=== PATIENT | male | born 1935 | race Caucasian/White ===

== ENCOUNTER → 2016-07-18 | Outpatient (CLI) | payer MEDICARE | LOC: PCVCCLINIC 11:00 | PROVIDERS: ATTEND Internal Medicine Cardiovascular Disease | DX: I25.10 Atherosclerotic heart disease of native coronary artery without angina pectoris (principal); E78.00 Pure hypercholesterolemia, unspecified; I10 Essential (primary) hypertension; I48.91 Unspecified atrial fibrillation | CPT/HCPCS: 80061; 93005; G0463 ==

== ENCOUNTER → 2016-07-18 | Outpatient (CLI) | payer MEDICARE | END | disposition home or self-care (01) | LOC: PCVCIMAG 10:58 | PROVIDERS: ATTEND Internal Medicine Cardiovascular Disease | DX: I25.10 Atherosclerotic heart disease of native coronary artery without angina pectoris (principal); E78.00 Pure hypercholesterolemia, unspecified; I10 Essential (primary) hypertension; I48.91 Unspecified atrial fibrillation | CPT/HCPCS: 80061; 93005; 93306; G0463 ==

== ENCOUNTER → 2016-10-23 | Outpatient (CLI) | payer MEDICARE | END | disposition home or self-care (01) | LOC: PCVCCLINIC 14:44 | PROVIDERS: ATTEND Internal Medicine Cardiovascular Disease | DX: I25.10 Atherosclerotic heart disease of native coronary artery without angina pectoris (principal); I48.91 Unspecified atrial fibrillation; I10 Essential (primary) hypertension; E78.00 Pure hypercholesterolemia, unspecified | CPT/HCPCS: 80061; 93005; G0463 ==

== ENCOUNTER → 2017-11-21 | Outpatient (CLI) | payer MEDICARE | END | disposition home or self-care (01) | LOC: PCVCCLINIC 14:41 | DX: I25.810 Atherosclerosis of coronary artery bypass graft(s) without angina pectoris (principal); I10 Essential (primary) hypertension; E78.5 Hyperlipidemia, unspecified; I48.2 Chronic atrial fibrillation; R94.31 Abnormal electrocardiogram [ECG] [EKG]; Z87.891 Personal history of nicotine dependence | CPT/HCPCS: 80061; 93005; G0463 ==

== ENCOUNTER → 2018-06-25 | Outpatient (CLI) | payer MEDICARE ==
[~2018-06-25] MED LIST: REGADENOSON 0.4 MG/5 ML DISP.SYRIN. IV ONE
--- NOTE | 2018-06-25 16:40 | PCVCIMAG ---
APPROVED REPORT Imaging Protocol: Rest Tc-99m/Stress Tc-99m 1 day Study performed: 06/25/2018 08:53:17 Indication: CAD, Afibrillation Patient Location: Out-Patient Stress Nurse: Mikki Orellana RN, Sadia Reddy RN IN Tech:Ellyn Campoverdeshahab [facility] Ht: 5 ft 9 in Wt: 180 lbs BSA: 1.98 m2 HR: 83 bpm BP: 178/92 mmHg BMI: 26.5 Rhythm: Atrial Fibrillation Medical History Medical History: HTN, Hyperlipidemia, Former Smoker, Atrial Fibrillation Medications: Eliquis, Cardura, Benicar, Bystolic, Crestor Allergies: Statins Cardiac Risk Factors: Age, CAD Previous Cardiac Procedures: CABG Pretest Chest Pain Characteristics: No chest pain Exercise History: Physically active Meds Held (24 hrs): pt held all meds today. Resting Data Rest SPECT myocardial perfusion imaging was performed in supine position 45 minutes following the intravenous injection of 9.4 mCi of Tc-99m Sestamibi. Time of rest injection: 809 Date: 06/25/2018 Administration Route: IV Administration Site: Right AC Pharmacologic Stress Pharmacologic stress test was performed by injecting Regadenoson 0.4 mg IV push over 10-15 seconds immediately followed by the intravenous injection of 34.6 mCi of Tc-99m Sestamibi. Time of stress injection: 944 Date: 06/25/2018 Administration Route: IV Administration Site: Right AC Gated Stress SPECT was performed 45 minutes after stress injection. The images were gated to evaluate regional wall motion and calculate left ventricular ejection fraction. Stress Test Details Stress Test: Pharmacologic stress testing performed using 0.4 mg of regadenoson per 5 mL given IV over 10 seconds. Reason for pharmacologic stress test: peripheral neuropathy. HRMax Heart Rate (APMHR): 137 bpm Resting HR: 83 bpmTarget HR (85% APMHR): 116 bpm Max HR Achieved: 113 bpm % of APMHR: 82 Recovery HR: 103 bpm BP Resting BP: 178/92 mmHg Max BP: 152/94 mmHg Recovery BP: 180/104 mmHg ECG Resting ECG: Atrial Fibrillation Stress ECG: Atrial Fibrillation Arrhythmia: VPC's Recovery ECG: Atrial Fibrillation Clinical Reason for Termination: Completed protocol Stress Symptoms: Chest pain, Lightheaded Exercise duration: 0 min 55 sec Symptoms resolved with caffeine. Stress ECG Conclusion ECG: Non-ischemic Study Quality Study: Good Study Data Post stress, the left ventricular ejection was 36%.. SSS: 2 SRS: 0 SDS: 2 TID = 1.04. Perfusion No evidence of stress induced ischemia. 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 Wall Motion Moderately decreased left ventricular systolic function. Nuclear Conclusion No evidence of stress induced ischemia. 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 Post stress, the left ventricular ejection was 36%. No prior study available for comparison. Interpreted by: Deric Rojas MD Electronically Approved: 06/25/2018 11:47:36 <Conclusion> ECG: Non-ischemic
== END | disposition home or self-care (01) ==
LOC: PCVCIMAG 07:44
PROVIDERS: ATTEND Internal Medicine Cardiovascular Disease
DX: I25.810 Atherosclerosis of coronary artery bypass graft(s) without angina pectoris (principal); I48.2 Chronic atrial fibrillation; I10 Essential (primary) hypertension; E78.00 Pure hypercholesterolemia, unspecified; E78.5 Hyperlipidemia, unspecified; Z87.891 Personal history of nicotine dependence
CPT/HCPCS: 36415; 78452; 80061; 93005; 93017; A9500; G0463; J2785

== ENCOUNTER → 2019-02-13 | Outpatient (CLI) | payer MEDICARE ==
--- NOTE | 2019-02-13 17:14 | PCVCIMAG ---
APPROVED REPORT Study performed: 02/13/2019 09:28:20 EXAM: Comprehensive 2D, Doppler, and color-flow Echocardiogram Patient Location: Echo lab Room #: 2Status: routine BSA: 1.98 HR: 69 bpmBP: 138/92 mmHg Rhythm: Atrial Fibrillation Other Information Study Quality: Good Risk Factors: Cardiac Risk Factors: HTN, Hyperlipidemia Indications Atrial Fibrillation CAD Hypertension/HDD S/P CABG 2D Dimensions IVSd: 12.05 (7-11mm)LVOT Diam: 21.09 (18-24mm) LVDd: 56.76 mm PWd: 10.29 (7-11mm)Ascending Ao: 36.00 (22-36mm) LVDs: 42.19 (25-40mm) Left Atrium: 49.40 (27-40mm) Aortic Root: 33.83 mm LV Single Plane 4CH: 38.93 % LV Single Plane 2CH: 32.05 % Biplane EF: 35.7 % Volumes Left Atrial Volume (Systole) Single Plane 4CH: 107.47 mLSingle Plane 2CH: 127.63 mL Biplane LA Volume: 118.00 mLLA ESV Index: 60.00 mL/m2 Aortic Valve AoV Peak Miguel Ángel.: 0.95 m/s AO Peak Gr.: 4.20 mmHgLVOT Max P.11 mmHg LVOT Max V: 0.89 m/s UMESH Vmax: 3.25 cm2 Mitral Valve MV E Max Miguel Ángel.: 0.63 m/s MV PHT: 53.44 ms MVA (PHT): 4.12 cm2 IVRT: 103.81 ms Pulmonary Valve PV Peak Miguel Ángel.: 0.75 m/sPV Peak Gr.: 2.26 mmHg Tricuspid Valve TR Peak Miguel Ángel.: 2.94 m/s TR Peak Gr.: 34.57 mmHg TV Vmax: 0.72 m/sPA Pressure: 42.00 mmHg Left Ventricle Left ventricle is borderline dilated. There is normal LV segmental wall motion. Mild concentric left ventricular hypertrophy. Left ventricular systolic function is moderately decreased. LVEF is 35-40%. This study is not technically sufficient to allow evaluation of the LV diastolic function due to atrial fibrillation. Right Ventricle The right ventricle is normal size. The right ventricular systolic function is normal. Atria Left atrium is severely dilated. Right atrium is severely dilated. Aortic Valve The aortic valve is normal in structure. Trace aortic regurgitation. There is no aortic valvular stenosis. Mitral Valve The mitral valve is normal in structure. Mild to moderate mitral regurgitation. No evidence of mitral valve stenosis. Tricuspid Valve The tricuspid valve is normal in structure. Moderate tricuspid regurgitation with a PA pressure of 42 mmHg. Moderate pulmonary hypertension. Pulmonic Valve The pulmonary valve is normal in structure. There is no pulmonic valvular regurgitation. Great Vessels The aortic root is normal in size. The ascending aorta is normal in size. Aortic arch is normal in caliber. IVC is normal in size and collapses >50% with inspiration. Pericardium There is no pericardial effusion. There is no pleural effusion. <Conclusion> Left ventricle is borderline dilated. Mild concentric left ventricular hypertrophy. Left ventricular systolic function is moderately decreased. LVEF is 35-40%. This study is not technically sufficient to allow evaluation of the LV diastolic function due to atrial fibrillation. Left atrium is severely dilated. Right atrium is severely dilated. Trace aortic regurgitation. Mild to moderate mitral regurgitation. Moderate tricuspid regurgitation with a PA pressure of 42 mmHg. Moderate pulmonary hypertension. The ascending aorta is normal in size. Aortic arch is normal in caliber. There is no pericardial effusion.
== END | disposition home or self-care (01) ==
LOC: PCVCIMAG 09:17
PROVIDERS: ATTEND Internal Medicine Cardiovascular Disease
DX: I08.1 Rheumatic disorders of both mitral and tricuspid valves (principal); I48.91 Unspecified atrial fibrillation; I11.9 Hypertensive heart disease without heart failure; I27.20 Pulmonary hypertension, unspecified; I25.810 Atherosclerosis of coronary artery bypass graft(s) without angina pectoris; E78.5 Hyperlipidemia, unspecified; Z87.891 Personal history of nicotine dependence
CPT/HCPCS: 36415; 80061; 93005; 93306; G0463